=== PATIENT | male | born 1965 | race African-American/Black ===

== ENCOUNTER 2021-10-19 12:59 | Inpatient (IN) | payer MEDICAID ==
[~2021-10-19] VITALS: Ht 172.7 cm; Wt 83.0 kg
[2021-10-19 20:00] VITALS: BP 120/78
[2021-10-19] MEDS ORDERED: NALOXONE HCL 0.4MG/ML VIAL IV PRN (22:00)
[2021-10-19] MEDS: HYDROMORPHONE HCL/PF 2MG/ML CPJ IV PRN (22:26)
[2021-10-19] MEDS ORDERED: CEFTRIAXONE 1 G PREMIX 50 ML IV SCH (22:45)
[2021-10-19] MEDS ORDERED: ACETAMINOPHEN 650MG/20.3ML UDC PO PRN (23:00)
[2021-10-19] MEDS: SODIUM CHLORIDE 0.9% 1,000 ML IV SCH (23:00)
[2021-10-19] MEDS ORDERED: CEFEPIME 2,000 MG in DEXT 5% WATER 100 ML IV SCH (23:00)
[2021-10-19] MEDS ORDERED: KETOROLAC 15MG/ML VIAL IV NR (23:00)
[2021-10-19] MEDS ORDERED: LABETALOL 5MG/ML SYR 20 MG/4 ML SYRINGE IV PRN (23:00)
[2021-10-19] MEDS ORDERED: ONDANSETRON HCL 4MG/2ML INJ IV PRN ×2 (23:00→23:15)
[2021-10-19] MEDS ORDERED: CLONIDINE 0.1MG TABLET PO PRN (23:15)
[2021-10-19] MEDS ORDERED: IPRATROPIUM/ALBUTEROL 0.5-3(2.5)MG/3ML NEB NEB PRN (23:15)
[2021-10-19] MEDS ORDERED: DEXTROSE 5% IV PRN (23:30)
[2021-10-19] MEDS ORDERED: LABETALOL HCL IV PRN (23:30)
[2021-10-19] MEDS ORDERED: WATER IV PRN (23:30)
[2021-10-19] MEDS ORDERED: MAGNESIUM/ALUMINUM HYDROXIDE/SIMETHICONE 30ML UDC PO PRN (23:45)
[2021-10-20] VITALS: BP 116/74
[2021-10-20 00:17] VITALS: BP 116/74
[2021-10-20] MEDS ORDERED: CEFTRIAXONE 1,000 MG in DEXTROSE 5% WATER 50 ML IV SCH (01:00)
[2021-10-20] MEDS ORDERED: VANCOMYCIN 750 MG in DEXT 5% WATER 250 ML IV SCH (01:00)
[2021-10-20 02:57] LABS: BASOPHILS % 0.7 % (0.0-2.0); EOSINOPHILS % 1.4 % (0.0-5.0); HEMOGLOBIN. 13.5 g/dL (14.0-18.0); LYMPHOCYTES % 15.5 % (20.0-50.0); MEAN CORPUSCULAR HEMOGLOBIN 29.4 pg (28.0-32.0); MONOCYTES % 9.2 % (2.0-8.0); NEUTROPHILS % 73.2 % (40.0-76.0); PLATELET 398 x1000/uL (130-400); RED CELL DISTRIBUTION WIDTH 13.1 % (11.6-14.6)
[2021-10-20 03:36] LABS: CHLORIDE 108 mEq/L (98-107)
[2021-10-20 03:42] LABS: PHOSPHORUS 3.1 mg/dL (2.5-4.9)
[2021-10-20 03:54] LABS: FOLIC ACID (FOLATE) SERUM 16.6 ng/mL (>5.38)
[2021-10-20] MEDS: KETOROLAC 15MG/ML VIAL IV SCH ×3 (05:23→18:00)
[2021-10-20] MEDS: HYDROMORPHONE HCL/PF 2MG/ML CPJ IV PRN ×2 (06:29→13:09)
[2021-10-20] MEDS: SODIUM CHLORIDE 0.9% 1,000 ML IV SCH ×3 (07:00→22:56)
[2021-10-20 08:00] VITALS: BP 130/64
[2021-10-20] MEDS: HEPARIN 5000 UNITS/ML VIAL SUBCUT SCH ×2 (09:00→21:09)
[2021-10-20] MEDS: CEFEPIME 2,000 MG in DEXT 5% WATER 100 ML IV SCH ×2 (10:02→21:09)
[2021-10-20] MEDS ORDERED: FENTANYL CITRATE/PF 50MCG/ML 2ML VIAL ONE (16:18)
[2021-10-20] MEDS ORDERED: PROPOFOL 200MG/20ML VIAL IV ONE (16:18)
[2021-10-20] MEDS ORDERED: MIDAZOLAM HCL 2 MG/2 ML VIAL ONE (16:19)
[2021-10-20] MEDS ORDERED: ONDANSETRON HCL 4MG/2ML INJ ONE (16:38)
[2021-10-20] MEDS ORDERED: DEXAMETHASONE 4MG/ML 1ML VIAL ONE (16:38)
[2021-10-20] MEDS ORDERED: METOCLOPRAMIDE HCL 10MG/2ML VIAL ONE (16:38)
[2021-10-20] MEDS ORDERED: KETOROLAC 30MG/ML VIAL ONE (16:47)
[2021-10-20] MEDS ORDERED: ROCURONIUM BROMIDE 10MG/ML VIAL 5ML IV ONE (16:54)
[2021-10-20] MEDS ORDERED: IOPAMIDOL 10 ML VIAL IT ONE (16:58)
[2021-10-20] MEDS ORDERED: GLYCOPYRROLATE 0.2 MG/ML 2ML VIAL ONE (17:33)
[2021-10-20] MEDS ORDERED: ONDANSETRON HCL 4MG/2ML INJ IV PRN (18:00)
[2021-10-20] MEDS ORDERED: HYDROMORPHONE HCL/PF 2MG/ML CPJ IV PRN (18:00)
[2021-10-20] MEDS ORDERED: SODIUM CHLORIDE 0.9% 1,000 ML IV SCH (18:00)
[2021-10-20] MEDS ORDERED: MEPERIDINE HCL/PF 25MG/ML CPJ IV PRN (18:00)
[2021-10-20] MEDS: VANCOMYCIN 750MG PMX (XELLIA) 150 ML IV SCH (19:47)
[2021-10-21] MEDS: KETOROLAC 15MG/ML VIAL IV SCH ×4 (00:32→18:11)
[2021-10-21] MEDS: VANCOMYCIN 750MG PMX (XELLIA) 150 ML IV SCH ×2 (06:19→18:11)
[2021-10-21] MEDS: SODIUM CHLORIDE 0.9% 1,000 ML IV SCH ×3 (06:20→23:00)
[2021-10-21 06:45] LABS: CHLORIDE 110 mEq/L (98-107)
[2021-10-21 08:00] VITALS: BP 109/70
[2021-10-21] MEDS: CEFEPIME 2,000 MG in DEXT 5% WATER 100 ML IV SCH ×2 (09:02→21:53)
[2021-10-21] MEDS: HEPARIN 5000 UNITS/ML VIAL SUBCUT SCH ×2 (09:03→21:51)
[2021-10-21] MEDS ORDERED: KETOROLAC 15MG/ML VIAL IV NR (09:58)
[2021-10-21 12:00] VITALS: BP 131/79
[2021-10-21] MEDS: HYDROMORPHONE HCL/PF 2MG/ML CPJ IV PRN ×2 (12:56→18:46)
[2021-10-21 16:00] VITALS: BP 115/72
[2021-10-22] MEDS: KETOROLAC 15MG/ML VIAL IV SCH ×5 (02:02→23:48)
[2021-10-22] MEDS: VANCOMYCIN 750MG PMX (XELLIA) 150 ML IV SCH ×2 (06:19→17:50)
[2021-10-22 08:00] VITALS: BP 131/83
[2021-10-22] MEDS: SODIUM CHLORIDE 0.9% 1,000 ML IV SCH ×3 (08:32→23:00)
[2021-10-22] MEDS: CEFEPIME 2,000 MG in DEXT 5% WATER 100 ML IV SCH ×2 (08:33→21:14)
[2021-10-22] MEDS: HEPARIN 5000 UNITS/ML VIAL SUBCUT SCH ×2 (08:33→21:17)
[2021-10-22] MEDS: HYDROMORPHONE HCL/PF 2MG/ML CPJ IV PRN (08:35)
[2021-10-22 12:00] VITALS: BP 134/75
[2021-10-22 13:05] LABS: EOSINOPHILS % 2.2 % (0.0-5.0); HEMATOCRIT. 37.4 % (42.0-52.0); HEMOGLOBIN. 12.4 g/dL (14.0-18.0); LYMPHOCYTES % 23.7 % (20.0-50.0); MEAN CORPUSCULAR HEMOGLOBIN 29.3 pg (28.0-32.0); MEAN CORPUSCULAR VOLUME 88.5 fL (80.0-94.0); MONOCYTES % 9.3 % (2.0-8.0); NEUTROPHILS % 63.8 % (40.0-76.0); PLATELET 389 x1000/uL (130-400); RED BLOOD CELL COUNT 4.22 mill/uL (4.7-6.1); RED CELL DISTRIBUTION WIDTH 13.2 % (11.6-14.6)
[2021-10-22 13:40] LABS: CHLORIDE 111 mEq/L (98-107)
[2021-10-22] MEDS: TRAMADOL 50MG TABLET PO PRN ×2 (15:07→21:29)
[2021-10-22 16:00] VITALS: BP 136/81
[2021-10-22 20:00] VITALS: BP 135/84
[2021-10-23] VITALS: BP 159/91
[2021-10-23 04:00] VITALS: BP 127/82
[2021-10-23] MEDS: VANCOMYCIN 750MG PMX (XELLIA) 150 ML IV SCH (05:38)
[2021-10-23] MEDS: KETOROLAC 15MG/ML VIAL IV SCH (05:38)
[2021-10-23] MEDS: TRAMADOL 50MG TABLET PO PRN ×2 (05:47→12:17)
[2021-10-23] MEDS: SODIUM CHLORIDE 0.9% 1,000 ML IV SCH (06:53)
[2021-10-23 08:00] VITALS: BP 125/71
[2021-10-23] MEDS: CEFEPIME 2,000 MG in DEXT 5% WATER 100 ML IV SCH (09:00)
[2021-10-23] MEDS: HEPARIN 5000 UNITS/ML VIAL SUBCUT SCH (09:00)
[2021-10-23 11:47] VITALS: BP 125/71
[2021-10-23 12:17] VITALS: BP 125/71
== END 2021-10-23 14:00 | disposition home or self-care (01) | DRG 465 ==
LOC: 6EST 12:59 → OBSVTOIN 12:59 → 6EST 20:36
PROVIDERS: ADMIT Internal Medicine; ATTEND Internal Medicine
PROC: 0TF78ZZ Fragmentation in Left Ureter, Via Natural or Artificial Opening Endoscopic (ICD-10-PCS; principal; 2021-10-20)
PROC: 0T778DZ Dilation of Left Ureter with Intraluminal Device, Via Natural or Artificial Opening Endoscopic (ICD-10-PCS; 2021-10-20)
DX: N13.2 Hydronephrosis with renal and ureteral calculous obstruction (principal); N17.0 Acute kidney failure with tubular necrosis; D63.8 Anemia in other chronic diseases classified elsewhere; Z20.822 Contact with and (suspected) exposure to COVID-19; F17.210 Nicotine dependence, cigarettes, uncomplicated; Z71.6 Tobacco abuse counseling
CPT/HCPCS: 36415; 71045; 74430; 76000; 80048; 80053; 80202; 82607; 82746; 83036; 83540; 83550; 83735; 84100; 84443; 85025; 87426; 93005; 93970; J0692; J0696; J1100; J1170; J1644; J1885; J2175; J2250; J2405; J2704; J2765; J3010; J3370; J3490; J7030; J7060; Q9966